=== PATIENT | female | born 1975 | race Caucasian/White ===

== ENCOUNTER → 2021-08-29 12:33 | Outpatient (CLI) | payer BC, SELFPAY ==
--- NOTE | ~2021-08-29 | MM_ITS ---
EXAMINATION: MM screening [place] BI w shiraz HISTORY: Screening mammogram TECHNIQUE: Craniocaudal and mediolateral oblique 3-D tomosynthesis images were obtained and synthetic 2-D images were generated. CAD analysis was submitted and interpreted. COMPARISON: 06/16/2018 bilateral digital screening mammogram BREAST PARENCHYMAL COMPOSITION: There are scattered areas of fibroglandular density. FINDINGS: Possible new 3 mm mass in the upper outer right breast (CC Tomosynthesis image 34/79; MLO T omosynthesis image 20/84). Diagnostic right mammogram and right breast ultrasound examination are rec ommended. Otherwise there is no evidence of suspicious mass, calcification, or architectural distortion to sugg est malignancy in either breast. There has been no other suspicious interval change. IMPRESSION: 1. Possible new 3 mm mass in upper outer right breast 2. Diagnostic right mammogram and right breast ultrasound examination are recommended BI-RADS Category 0: Incomplete: Needs additional imaging evaluation. Reviewed, dictated and finalized at location A. IMPRESSION: 1. Possible new 3 mm mass in upper outer right breast 2. Diagnostic right mammogram and right breast ultrasound examination are recom mended BI-RADS Category 0: Incomplete: Needs additional imaging evaluation.
== END ==
PROVIDERS: Visit Provider Obstetrics & Gynecology
DX: Z12.31 Encounter for screening mammogram for malignant neoplasm of breast (principal); R92.8 Other abnormal and inconclusive findings on diagnostic imaging of breast
CPT/HCPCS: 77063; 77067

== ENCOUNTER → 2021-09-26 08:01 | Outpatient (CLI) | payer BC, SELFPAY ==
--- NOTE | ~2021-09-26 | MMUS_ITS ---
EXAMINATION: MM diagnostic [place] RT w shiraz, US breast RT limited HISTORY: Possible right breast mass on screening mammogram TECHNIQUE: Additional 3-D tomosynthesis images of the right breast were performed and synthetic 2-D i mages were generated. CAD analysis was submitted and interpreted. High resolution limited right breas t ultrasound was performed. COMPARISON: 08/29/2021, 06/16/2018 BREAST PARENCHYMAL COMPOSITION: The breasts are heterogeneously dense, which may obscure small masses . FINDINGS: MAMMOGRAPHIC FINDINGS: There is a 4 mm round, obscured, equal density mass in the middle third of the slightly outer breast at the 8:00 location 1 cm lateral, and 4 cm deep to the nipple. ULTRASOUND: There is a 3 mm round cyst at 8:00 location 0.5 cm from the nipple. IMPRESSION: 1. No mammographic or sonographic evidence of malignancy. 2. Recommend routine screening mammography in one year. BI-RADS Category 2: Benign finding(s). Reviewed, dictated and finalized at location A. LIBRARY DIRECTOR IMPRESSION: 1. No mammographic or sonographic evidence of malignancy. 2. Recommend routine screening mammography in one year. BI-RADS Category 2: Benign finding(s).
== END ==
PROVIDERS: Visit Provider Obstetrics & Gynecology
DX: R92.8 Other abnormal and inconclusive findings on diagnostic imaging of breast (principal)
CPT/HCPCS: 76642; 77061; 77065; G0279

== ENCOUNTER 2024-05-09 10:16 | Outpatient (CLI) | payer BC, SELFPAY ==
--- NOTE | ~2024-05-09 | MM_ITS ---
EXAMINATION: MM screening [place] BI w shiraz HISTORY: Screening mammogram TECHNIQUE: Craniocaudal and mediolateral oblique 3-D tomosynthesis images were obtained and synthetic 2-D images were generated. CAD analysis was submitted and interpreted. COMPARISON: 08/29/2021, at 07/28/2018 BREAST PARENCHYMAL COMPOSITION:Not Dense. There are scattered areas of fibroglandular density. FINDINGS: No suspicious mass, calcification, or architectural distortion are identified in either tamia ast to suggest malignancy. There has been no suspicious interval change. IMPRESSION: No mammographic evidence of malignancy. Recommend routine screening mammography in one year. BI-RADS Category 1: Negative Reviewed, dictated and finalized at location .
== END 2024-05-09 10:17 ==
LOC: MICIMG 10:18
PROVIDERS: PCP Internal Medicine; Visit Provider Nurse Practitioner Obstetrics & Gynecology
DX: Z12.31 Encounter for screening mammogram for malignant neoplasm of breast (principal)
CPT/HCPCS: 77063; 77067

== ENCOUNTER 2024-06-08 13:55 | Outpatient (CLI) | payer BC, SELFPAY ==
--- NOTE | ~2024-06-08 | XR_ITS ---
EXAMINATION: XR ribs RT 2V w CXR 2V DATE: 06/08/2024 14:24 INDICATION: Right chest wall pain. Injury. Cough. TECHNIQUE: Frontal and lateral views of the chest and 2 views on 3 radiographs of the right ribs were obtained. COMPARISON: None. FINDINGS: CHEST TWO VIEWS: There is no pneumonia, pleural effusion, or pneumothorax. The heart size is normal. RIGHT RIBS: There is no fracture. IMPRESSION: 1. No rib fracture. Reviewed, dictated and finalized at location A. IMPRESSION: 1. No rib fracture.
--- NOTE | ~2024-06-08 | CT_ITS ---
EXAMINATION: CTA chest PE protocol DATE: 06/08/2024 16:06 INDICATION: Chest pain. Elevated d-dimer. TECHNIQUE: Computed tomography (CT) pulmonary angiogram of the chest was performed with 100 mL Omnipa que-350 intravenous contrast. Additional 3D reconstructions utilizing coronal maximum intensity proje ction (MIP) were performed. Automated exposure control and iterative reconstruction technique were em ployed. The dose-length product was 579.56 mGy-cm. COMPARISON: None FINDINGS: No pulmonary embolism. Mild dependent atelectasis in bilateral lower lobes and additional atelectasis at the posterior inferior lingula. No pneumonia, pulmonary edema or pleural effusion. Heart size is normal. No pericardial effusion. Thoracic aorta is normal in caliber with no dissection. No pathologi mallorie enlarged thoracic lymphadenopathy. Visualized upper abdomen is unremarkable. Moderate thoracic spondylosis. Chronic mild anterior wedging at T7-T9. IMPRESSION: 1. No pulmonary embolism or other acute cardiopulmonary disease. Reviewed, dictated and finalized at location A.
[2024-06-08 14:13] LABS: Basophils Absolute Auto 0.06 K/mm3 (0.00-0.10); Basophils Percent Auto 0.7 % (0.0-1.0); Eosinophils Absolute Auto 0.16 K/mm3 (0.02-0.50); Hematocrit 33.8 % (35.0-49.0); Hemoglobin 11.4 g/dL (12.0-15.0); Immature Granulocyte Absolute 0.01 K/mm3 (0.00-0.00); Immature Granulocyte Percent A 0.1 % (0.0-0.0); Lymphocytes Absolute Auto 2.46 K/mm3 (1.10-4.50); Lymphocytes Percent Auto 30.7 % (18.0-42.0); Mean Corpuscular HGB Conc 33.7 g/dL (32-36); Mean Corpuscular Hemoglobin 28.5 pg (27.0-31.0); Mean Corpuscular Volume 84.5 fL (78.0-102.0); Mean Platelet Volume 8.4 fl (9.2-11.8); Monocytes Absolute Auto 0.72 K/mm3 (0.10-0.90); Neutrophils Percent Auto 57.5 % (50.0-70.0); Platelet Count Result 416 K/mm3 (150-420); Red Cell Distribution Width 13.5 % (11.6-14.4)
[2024-06-08 14:29] LABS: D Dimer 0.71 mg/L (0.19-0.50)
[2024-06-08 15:20] LABS: Estimated Glomerular Filt Rate > 60
== END 2024-06-08 13:56 | disposition home or self-care (01) ==
PROVIDERS: PCP Internal Medicine; Visit Provider Internal Medicine
DX: R07.89 Other chest pain (principal); R79.1 Abnormal coagulation profile
CPT/HCPCS: 36415; 71046; 71100; 71275; 85025; 85380; Q9967